=== PATIENT | male | born 1930 ===

== ENCOUNTER 2017-10-25 05:30 | Day surgery (SDC) | payer OTHER ==
[~2017-10-25 05:30] MED LIST: LISINOPRIL20 MG PO; POLY119PG PO; PRAVASTATIN SOD40 MG PO; SURFAK240 M1 PO; TAMS0.4C PO; ULTRACET PO
[2017-10-25] MEDS ORDERED: POLY119PG PO (09:43)
[2017-10-25] MEDS ORDERED: NEURONTIN300 MG PO (09:43)
[2017-10-25] MEDS ORDERED: ULTRACET PO (09:43)
== END 2017-10-25 22:00 | disposition home or self-care (01) ==
LOC: CIR.AMB 05:30 → EDBD 07:30 → CIR.AMB 07:30
DX: K40.91 Unilateral inguinal hernia, without obstruction or gangrene, recurrent (principal)

== ENCOUNTER 2017-12-22 08:20 | Outpatient (CLI) | payer OTHER ==
[~2017-12-22 08:20] MED LIST changes: +NEURONTIN300 MG PO
== END 2017-12-22 09:00 | disposition home or self-care (01) ==
LOC: NUCLEAR 08:20
DX: M79.604 Pain in right leg (principal); K40.90 Unilateral inguinal hernia, without obstruction or gangrene, not specified as recurrent

== ENCOUNTER 2017-12-29 08:02 | Outpatient (CLI) | payer OTHER | END 2017-12-29 08:27 | disposition home or self-care (01) | LOC: NUCLEAR 08:02 | DX: M79.604 Pain in right leg (principal); K40.90 Unilateral inguinal hernia, without obstruction or gangrene, not specified as recurrent; I73.9 Peripheral vascular disease, unspecified ==

== ENCOUNTER 2018-01-04 07:05 | Emergency (ER) | payer OTHER ==
[~2018-01-04] VITALS: Ht 170.2 cm; Wt 54.4 kg
[2018-01-04] MEDS ORDERED: PAMELOR25 MG (07:24)
[2018-01-04] MEDS ORDERED: GABAPENTIN100 MG PO (08:54)
[2018-01-04] MEDS ORDERED: ASPIR 8181 MG PO (08:54)
== END 2018-01-04 08:58 | disposition home or self-care (01) ==
LOC: ER 07:05
DX: I73.89 Other specified peripheral vascular diseases (principal); G62.9 Polyneuropathy, unspecified

== ENCOUNTER → 2018-02-02 | Outpatient (CLI) | payer OTHER ==
[~2018-02-02] MED LIST changes: +ASPIR 8181 MG PO; +GABAPENTIN100 MG PO; +PAMELOR25 MG
== END | disposition home or self-care (01) ==
LOC: NUCLEAR 07:00
DX: I25.10 Atherosclerotic heart disease of native coronary artery without angina pectoris (principal)
CPT/HCPCS: 78452; 93017; A9500; J0153

== ENCOUNTER 2022-06-17 09:42 | Emergency (ER) | payer OTHER ==
[~2022-06-17] VITALS: Ht 152.4 cm; Wt 54.4 kg
[2022-06-17] MEDS ORDERED: LIPOFEN150 MG PO (10:01)
[2022-06-17] MEDS ORDERED: TAMS0.4C PO (10:02)
[2022-06-17] MEDS ORDERED: DICYCLOMINE HCL20 MG PO (10:02)
[2022-06-17] MEDS ORDERED: CIPRO500 MG PO (12:51)
== END 2022-06-17 13:00 | disposition home or self-care (01) ==
LOC: ER 09:42 → EDBD 09:47 → ER 13:00
DX: R31.9 Hematuria, unspecified (principal); I10 Essential (primary) hypertension; N40.1 Benign prostatic hyperplasia with lower urinary tract symptoms